=== PATIENT | female | born 1995 | race American Indian/Alaskan Native ===

== ENCOUNTER 2018-12-16 19:16 | Emergency (ER) | payer MEDICAID, OTHER ==
[2018-12-16 19:23] VITALS: BP 121/68
[2018-12-16 20:39] LABS: HCG Qualitative,Urine Negative (Negative)
[2018-12-16 20:47] LABS: Bilirubin,Urine NEG (Negative); Blood,Urine NEG (Negative); Color,Urine Yellow (Yellow); Mucus,Urine 2+ /HPF; Protein,Urine <15 mg/dL mg/dL (Negative); Urobilinogen,Urine < 2.0 mg/dL (<2.0)
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
[2018-12-16] MEDS ORDERED: LIDOCAINE-MPF (1%) 10 MG/1 ML VIAL 5 ML INFILTRATI ONE (22:15)
[2018-12-16] MEDS ORDERED: AZITHROMYCIN 250 MG TAB PO ONE (22:15)
== END 2018-12-16 23:35 | disposition home or self-care (01) ==
LOC: ED 19:16
DX: N89.8 Other specified noninflammatory disorders of vagina (principal); R82.81 Pyuria; R10.2 Pelvic and perineal pain; Z79.899 Other long term (current) drug therapy; Z71.1 Person with feared health complaint in whom no diagnosis is made
CPT/HCPCS: 81001; 81025; 87086; 96372; 99283; J0696

== ENCOUNTER 2020-05-01 15:23 | Emergency (ER) | payer SELFPAY ==
[2020-05-01 15:55] VITALS: BP 152/76
[2020-05-01 16:28] LABS: HCG Qualitative,Urine Positive (Negative)
[2020-05-01 16:32] LABS: Bilirubin,Urine NEG (Negative); Blood,Urine NEG (Negative); Color,Urine Yellow (Yellow); Mucus,Urine FEW /HPF; Protein,Urine <15 mg/dL mg/dL (Negative); Urobilinogen,Urine < 2.0 mg/dL (<2.0)
--- NOTE | 2020-05-01 17:11 | Emergency Department Report ---
ED Female HPI - General Chief complaint: Urogenital-Female Stated complaint: ABD CRAMPS Source: patient Mode of arrival: Ambulatory Limitations: No Limitations - History of Present Illness MD Complaint: other -: Gradual Severity scale (0 -10): 0 Consistency: constant Improves with: none Worsens with: none Are you Now?: No (unsure. missed menses) Associated Symptoms: denies: vaginal discharge, vaginal bleeding, nausea/vomiting, loss of appetite, dysuria, hematuria, syncope, weakness - Related Data Previous Rx's Medication Instructions Recorded Last Taken Type Lidocain2.5%/Prilocai2.5% [Emla] 5 gm TP ONCE #1 tube 09/12/14 Unknown Rx Sulfamethoxazole/Trimethoprim 1 each PO BID 3 Days #6 tablet 12/16/18 Unknown Rx [Bactrim DS TAB] metroNIDAZOLE [Flagyl] 500 mg PO Q12HR 7 Days #14 tab 12/16/18 Unknown Rx Allergies Allergy/AdvReac Type Severity Reaction Status Date / Time No Known Allergies Allergy Verified 05/01/20 15:51 ED Review of Systems ROS: Stated complaint: ABD CRAMPS Other details as noted in HPI Comment: All other systems reviewed and negative ED Past Medical Hx - Past Medical History Hx Hypertension: No Hx Congestive Heart Failure: No Hx Diabetes: No Hx Deep Vein Thrombosis: No Hx Renal Disease: No Hx Sickle Cell Disease: No Hx Seizures: No Hx Asthma: No Hx COPD: No Hx HIV: No - Surgical History Past Surgical History?: No - Social History Smoking Status: Never Smoker Substance Use Type: None - Medications Home Medications: Home Medications Medication Instructions Recorded Confirmed Last Taken Type Lidocain2.5%/Prilocai2.5% [Emla] 5 gm TP ONCE #1 tube 09/12/14 Unknown Rx Sulfamethoxazole/Trimethoprim 1 each PO BID 3 Days #6 tablet 12/16/18 Unknown Rx [Bactrim DS TAB] metroNIDAZOLE [Flagyl] 500 mg PO Q12HR 7 Days #14 tab 12/16/18 Unknown Rx ED Physical Exam - General Limitations: No Limitations General appearance: alert, in no apparent distress - Head Head exam: Present: atraumatic, normocephalic - Eye Eye exam: Present: normal appearance - ENT ENT exam: Present: mucous membranes moist - Neck Neck exam: Present: normal inspection - Respiratory Respiratory exam: Present: normal lung sounds bilaterally. Absent: respiratory distress - Cardiovascular Cardiovascular Exam: Present: regular rate, normal rhythm. Absent: systolic murmur, diastolic murmur, rubs, gallop - GI/Abdominal GI/Abdominal exam: Present: soft, normal bowel sounds - Extremities Exam Extremities exam: Present: normal inspection - Back Exam Back exam: Present: normal inspection - Neurological Exam Neurological exam: Present: alert, oriented X3 - Psychiatric Psychiatric exam: Present: normal affect, normal mood - Skin Skin exam: Present: warm, dry, intact, normal color. Absent: rash ED Course Vital Signs 05/01/20 15:51 Temperature 97.4 F L Pulse Rate 90 Respiratory 20 Rate Blood Pressure 152/76 O2 Sat by Pulse 100 Oximetry Critical care attestation.: If time is entered above; I have spent that time in minutes in the direct care of this critically ill patient, excluding procedure time. ED Disposition Clinical Impression: Disposition: DC-01 TO HOME OR SELFCARE Is pt being admited?: No Does the pt Need Aspirin: No Condition: Stable Referrals: [facility] [Provider Group] - 3-5 Days [facility] [Provider Group] - 3-5 Days [facility] [Provider Group] - 3-5 Days
== END 2020-05-01 18:55 | disposition home or self-care (01) ==
LOC: ED 15:23
DX: O26.891 Other specified pregnancy related conditions, first trimester (principal); Z79.899 Other long term (current) drug therapy; Z3A.01 Less than 8 weeks gestation of pregnancy
CPT/HCPCS: 36415; 81001; 81025; 84702; 87591

== ENCOUNTER 2020-09-08 22:49 | Emergency (ER) | payer MEDICAID ==
[2020-09-09 01:28] VITALS: BP 126/67
[2020-09-09] MEDS ORDERED: ACETAMINOPHEN 500 MG TAB PO ONE (05:40)
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
[2020-09-09 06:54] LABS: HCG Qualitative,Urine Positive (Negative)
[2020-09-09 07:00] LABS: Bacteria,Urine 1+ /HPF (Negative); Bilirubin,Urine NEG (Negative); Blood,Urine NEG (Negative); Color,Urine Yellow (Yellow); Mucus,Urine 3+ /HPF; Urobilinogen,Urine < 2.0 mg/dL (<2.0)
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
== END 2020-09-09 08:25 | disposition home or self-care (01) ==
LOC: ED 22:49
DX: S30.1XXA Contusion of abdominal wall, initial encounter (principal); V49.49XA Driver injured in collision with other motor vehicles in traffic accident, initial encounter; Y93.89 Activity, other specified; Y92.89 Other specified places as the place of occurrence of the external cause; Y99.8 Other external cause status
CPT/HCPCS: 76816; 81001; 81025; 99284

== ENCOUNTER 2020-11-15 21:40 | Outpatient (CLI) | payer MEDICAID ==
[2020-11-15 22:34] VITALS: BP 124/64
[2020-11-15] MEDS ORDERED: LACTATED RINGERS 500 ML IV ONE (22:42)
[2020-11-15 23:12] LABS: Bacteria,Urine 1+ /HPF (Negative); Mucus,Urine FEW /HPF
[2020-11-15 23:13] LABS: Bilirubin,Urine NEG (Negative); Blood,Urine NEG (Negative); Color,Urine Yellow (Yellow); Protein,Urine <15 mg/dL mg/dL (Negative); Urobilinogen,Urine < 2.0 mg/dL (<2.0)
== END 2020-11-15 23:37 | disposition home or self-care (01) ==
LOC: EDSTATUS 21:58 → TRG 22:05 → APU 22:06 → TRG 23:37
PROVIDERS: ATTEND Obstetrics & Gynecology
DX: Z34.93 Encounter for supervision of normal pregnancy, unspecified, third trimester (principal); Z3A.34 34 weeks gestation of pregnancy
CPT/HCPCS: 59025; 81001

== ENCOUNTER 2020-12-28 19:12 | Outpatient (CLI) | payer MEDICAID ==
[2020-12-28 19:39] VITALS: BP 122/71
[2020-12-28] MEDS ORDERED: LACTATED RINGERS 1,000 ML IV ONE (20:06)
[2020-12-28 21:01] LABS: Amphetamine Screen,Urine Negative; Benzodiazepines Screen,Urine Negative; Cannabinoid Screen,Urine Negative; Cocaine Screen,Urine Negative; Methadone Screen,Urine Negative; Opiate Screen,Urine Negative
[2020-12-28 21:51] LABS: Bacteria,Urine 4+ /HPF (Negative); Bilirubin,Urine NEG (Negative); Blood,Urine NEG (Negative); Color,Urine Yellow (Yellow); Mucus,Urine 1+ /HPF
[2020-12-28] MEDS ORDERED: D5W/LACTATED RINGERS 1,000 ML IV SCH (23:00)
--- NOTE | 2020-12-29 03:36 | Ultrasound Report ---
ULTRASOUND OBSTETRIC LIMITED ULTRASOUND BIOPHYSICAL PROFILE INDICATION / CLINICAL INFORMATION: FRANCISCO JAVIER. Clinical Gestational Age (GA) in weeks, days: 40.2 TECHNIQUE: Transabdominal. COMPARISON: None available. FINDINGS: BREATHING MOVEMENT = 2 GROSS BODY MOVEMENT = 2 TONE = 2 QUALITATIVE AMNIOTIC FLUID VOLUME = 2 TOTAL BIOPHYSICAL SCORE = 8/8 HEART RATE (beats per minute): 140 AMNIOTIC FLUID INDEX (cm) = 11.2 (normal = 7-24 cm) PRESENTATION: Cephalic. ADDITIONAL FINDINGS: None. IMPRESSION: 1. Biophysical Score = 8/8 2. Amniotic fluid index is 11.2 cm. Signer Name: Stanley Dias MD Signed: 12/29/2020 3:31 AM Workstation Name: [id number]
== END 2020-12-29 01:52 | disposition home or self-care (01) ==
LOC: TRG 19:12 → APU 19:14 → TRG 12-29 01:52
PROVIDERS: ATTEND Obstetrics & Gynecology
DX: O26.893 Other specified pregnancy related conditions, third trimester (principal); R10.9 Unspecified abdominal pain; O48.0 Post-term pregnancy; Z3A.40 40 weeks gestation of pregnancy
CPT/HCPCS: 59025; 76815; 76819; 80307; 81001; 96360; 96361; J7120; J7121; J3490; J7060

== ENCOUNTER 2020-12-30 10:16 | Outpatient (CLI) | payer MEDICAID ==
[2020-12-30 11:09] VITALS: BP 121/79
--- NOTE | 2020-12-30 11:54 | Ultrasound Report ---
ULTRASOUND OBSTETRIC LIMITED ULTRASOUND BIOPHYSICAL PROFILE INDICATION / CLINICAL INFORMATION: NON REASSURING FHTs - BPP. Clinical Gestational Age (GA): 40.3 weeks.days COMPARISON: 12/29/2020 FINDINGS: BREATHING MOVEMENT = 2 GROSS BODY MOVEMENT = 2 TONE = 2 QUALITATIVE AMNIOTIC FLUID VOLUME = 2 TOTAL BIOPHYSICAL SCORE = 8/8 HEART RATE (beats per minute): 125 AMNIOTIC FLUID INDEX (cm) = 21 (normal = 7-24 cm) PRESENTATION: Cephalic. ADDITIONAL FINDINGS: None. IMPRESSION: 1. Biophysical Score = 8/8 Signer Name: Frankie Bermeo MD Signed: 12/30/2020 11:50 AM Workstation Name: [id number]
== END 2020-12-30 11:53 | disposition home or self-care (01) ==
LOC: TRG 10:16 → APU 10:18 → TRG 11:53
PROVIDERS: ATTEND Obstetrics & Gynecology
DX: Z34.93 Encounter for supervision of normal pregnancy, unspecified, third trimester (principal); Z3A.40 40 weeks gestation of pregnancy
CPT/HCPCS: 59025; 76815; 76819

== ENCOUNTER 2021-01-10 12:37 | Emergency (ER) | payer MEDICAID ==
[2021-01-10 12:50] VITALS: BP 137/80
--- NOTE | 2021-01-10 13:20 | Emergency Department Report ---
ED Rash HPI - HPI Chief Complaint: Allergic Reaction Stated Complaint: ALLERGIC REACTION Time Seen by Provider: 01/10/21 13:06 Duration: 2 Days Location: Lower Extremities (rt thigh) Suspected Cause: Unknown Rash Symptoms: No Itching, No Facial Swelling, No Tongue/Oral Swelling, No Breathing Difficulties, No Choking Sensation, No Wheezing/Dyspnea, No Peeling, No Blistering, No Fever, No Lightheaded, No Malaise, No Myalgias Severity: mild Other History: 26 y/o female -[place] female who just recently delivered baby and received the Tdap. She comes in thinking she has allergic reaction to the Tdap on her right thigh she had a few blisters that has popped. Patient denies any pain at this time. States that they have burst and she was wondering if that could be the reason for the blisters. Patient denies any shortness of breath no chest pain no difficulty swallowing or difficulty breathing. She denies any swelling of her leg no drainage. ED Review of Systems ROS: Stated complaint: ALLERGIC REACTION Other details as noted in HPI Comment: All other systems reviewed and negative ED Past Medical Hx - Past Medical History Hx Hypertension: No Hx Heart Attack/AMI: No Hx Congestive Heart Failure: No Hx Diabetes: No Hx Deep Vein Thrombosis: No Hx Liver Disease: No Hx Renal Disease: No Hx Sickle Cell Disease: No Hx Seizures: No Hx Asthma: No Hx COPD: No Hx HIV: No - Social History Smoking Status: Never Smoker - Medications Home Medications: Home Medications Medication Instructions Recorded Confirmed Last Taken Type Vit-Fe Fumar-FA [ 1 tab PO QDAY 01/03/21 01/03/21 12/31/20 History Vitamin] HYDROcodone/APAP 5-325 [Ransom 1 each PO Q6HR PRN #15 tablet 01/04/21 Unknown Rx 5/325] Ibuprofen [Motrin] 800 mg PO Q8HR PRN #30 tablet 01/04/21 Unknown Rx Rash Exam - Exam General: Vital signs noted. No distress. Alert and acting appropriately. ED Course Vital Signs 01/10/21 12:49 Temperature 98.5 F Pulse Rate 81 Respiratory 18 Rate Blood Pressure 137/80 [Right] O2 Sat by Pulse 99 Oximetry ED Medical Decision Making - Medical Decision Making 26 y/o female -[place] female who just recently delivered baby and received the Tdap. She comes in thinking she has allergic reaction to the Tdap on her right thigh she had a few blisters that has popped. Patient denies any pain at this time. States that they have burst and she was wondering if that could be the reason for the blisters. Patient denies any shortness of breath no chest pain no difficulty swallowing or difficulty breathing. She denies any swelling of her leg no drainage. Patient is discharged home instructed to follow-up with her primary care provider she has no signs of infection nonerythematous no blisters. Critical care attestation.: If time is entered above; I have spent that time in minutes in the direct care of this critically ill patient, excluding procedure time. ED Disposition Clinical Impression: Rash Disposition: 01 HOME / SELF CARE / HOMELESS Is pt being admited?: No Does the pt Need Aspirin: No Condition: Stable Instructions: Rash, Adult, [id number] Additional Instructions: Recommend to follow-up with your primary care provider. Referrals: SAM SCHWARZ MD [Staff Physician] - 3-5 Days Time of Disposition: 13:07
== END 2021-01-10 13:28 | disposition home or self-care (01) ==
LOC: ED 12:37
DX: R21 Rash and other nonspecific skin eruption (principal)
CPT/HCPCS: 99282